=== PATIENT | female | born 1980 | race Asian ===

== ENCOUNTER → 2019-03-07 | Outpatient (CLI) | payer OTHER ==
--- NOTE | 2019-03-08 10:35 | RAD ---
US PELVIS W/TV History: Known fibroids, heavy irregular cycle Comparison: None. Findings: Multiple transabdominal sonographic images of the pelvis are submitted. Uterus measured 9.8 x 7.7 x 10.3 cm. Endometrium is thin at 0.4 cm. Left ovary measured about 3 x 1.7 x 3.3 cm. Right ovary is not seen on this portion of exam. Transvaginal ultrasound: Multiple transvaginal sonographic images of pelvis are submitted. Uterus measured 9.9 x 10.4 x 7 cm. There is a mass of the uterus near the lower uterine segment on the left about 4.4 x 3.8 x 3.5 cm. There is another somewhat heterogeneous mass of the right aspect of the uterus about 6.8 x 6.3 x 6.5 cm apparently extending near the endometrial complex. No significant free fluid is demonstrated. Right ovary measured 1.9 x 1.9 x 3 cm with normal low resistance vascularity. Left ovary measured 3 x 2.8 x 3.3 cm with normal low resistance vascularity. Impression: 1. There are uterine masses more likely due to fibroids, larger mass on the right apparently extending near the endometrial complex and mass near the lower uterine segment eccentric to the left. Electronically signed by: Pablo Kuo MD (03/08/2019 10:32 AM) [id number]
== END | disposition home or self-care (01) ==
LOC: US 13:47
PROVIDERS: ATTEND Obstetrics & Gynecology
DX: D21.9 Benign neoplasm of connective and other soft tissue, unspecified (principal); N85.8 Other specified noninflammatory disorders of uterus
CPT/HCPCS: 76830; 76856